=== PATIENT | female | born 1960 | race Two or more races ===

== ENCOUNTER 2016-11-04 11:11 | Inpatient (IN) | payer OTHER ==
[2016-10-24 11:38] VITALS: BMI 29.0
--- NOTE | 2016-11-03 19:04 | HP ---
DATE OF ADMISSION: Sara Keen is a 56-year-old lady seen with progressive right knee pain consistent with symptomatic osteoarthritis, failing conservative treatment measures. After having options regarding treatment discussed, she elected to proceed with right total knee arthroplasty. Consent regarding the procedure was obtained. Past medical history is hypothyroidism, osteoarthritis. PAST SURGICAL HISTORY: Cataract surgery, knee arthroscopy. Daily medications: 1. [place]. 2. Thyroxine. ALLERGIES: AMOXICILLIN. SOCIAL HISTORY: Patient denies current tobacco use. Physical evaluation of the right knee: Her range of motion is -3 to 115 degrees. There is a mild to moderate intra-articular effusion present. Tenderness medial joint line with a positive medial Rossy's. Crepitus along the medial and patellofemoral compartments with range of motion. Pain with patellofemoral compression. Ligaments stable. Hip rotation without pain. Distal neurovascular exam intact. Radiographs of the right knee revealed severe tricompartmental osteoarthritis. IMPRESSION: Right knee osteoarthritis. PLAN: Right total knee arthroplasty.
[~2016-11-04 11:11] MED LIST: ACETAMINOPHEN TAB 500 MG TAB PO ONE; CLINDAMYCIN 900 MG in DEXTROSE 5% IN WATER 50 ML IVPB ONE; HYDROmorphone 1 MG/ML 1 ML SYRINGE IVP PRN; LIDOCAINE 1% 20 ML VIAL (10MG/ML) FOR IV START INTRADERMA PRN; MELOXICAM 7.5 MG TAB PO ONE; MIDAZOLAM 2 MG/2 ML VIAL IV PRN; ONDANSETRON 4 MG/2 ML VIAL IVP ONE; TRANEXAMIC ACID 1,000 MG in SODIUM CHLORIDE 0.9% 100 ML IVPB ONE; fentaNYL (PF) 50 MCG/ML 20 ML VIAL IVP PRN
[2016-11-04] MEDS: LACTATED RINGERS 1,000 ML IV SCH ×3 (11:53→18:02)
[2016-11-04] MEDS ORDERED: MIDAZOLAM 2 MG/2 ML VIAL IVP ONE (12:38)
[2016-11-04] MEDS ORDERED: LIDOCAINE 1% INJ 10MG/ML (20 ML MDV) ONE (13:53)
[2016-11-04] MEDS ORDERED: PROPOFOL 10 MG/ML 20 ML VIAL IV ONE (13:53)
[2016-11-04] MEDS ORDERED: PHENYLEPHRINE-0.9% NACL SYG 1 MG/10 ML SYRINGE ONE (13:53)
[2016-11-04] MEDS ORDERED: SODIUM CHLORIDE 0.9% 100 ML BAG ONE (13:53)
[2016-11-04] MEDS ORDERED: TRANEXAMIC ACID 1,000 MG/10 ML VIAL ONE (13:53)
[2016-11-04] MEDS ORDERED: MIDAZOLAM 2 MG/2 ML VIAL ONE (13:53)
[2016-11-04] MEDS ORDERED: fentaNYL (PF) 50 MCG/ML 2 ML AMP ONE (13:53)
[2016-11-04] MEDS ORDERED: CLINDAMYCIN 1,800 MG in SODIUM CHLORIDE 0.9% IRRIGATIO 3,000 ML IRRIGATION ONE (13:53)
[2016-11-04] MEDS ORDERED: ePHEDrine 50 MG/ML 1 ML AMP ONE (13:53)
[2016-11-04] MEDS ORDERED: ROPIVACAINE 1,100 MG, SODIUM CHLORIDE 0.9% 330 ML MISCELLANE PRN ×2 (14:17)
--- NOTE | 2016-11-04 14:19 | P.ONQ ---
Anesthesiology Proc Note - PNB - Peripheral Nerve Block Performed Right Adductor Canal Infusion Time Out Performed: Yes Procedure Start Time: 12:30 Procedure Stop Time: 12:40 Indication: Acute Post-Operative Pain, Requested by physician Sedation Type: Awake Preparation: Sterile Dressing Position: Supine Needle Size: 100mm (4") Needle Gauge: 21 Technique: Ultrasound Injectate: 0.5% Ropivacaine (see comment for volume) (ropi .5% 20cc) Blood Aspirated: No Pain Paresthesia on Injection Noted: No Resistance on Injection: Normal Events: Uneventful and Well Tolerated
[2016-11-04] MEDS: ROPIVACAINE 246.25 MG, EPINEPHrine 0.5 MG, KETOROLAC 30 MG, cloNIDine HCL/PF 80 MCG, WA... MISCELLANE ONE ×10 (14:31→14:54)
[2016-11-04] MEDS ORDERED: LACTATED RINGERS 1,000 ML IV ONE (14:35)
[2016-11-04] MEDS ORDERED: ONDANSETRON 4 MG/2 ML VIAL IVP PRN (15:57)
[2016-11-04] MEDS ORDERED: NALOXONE 0.4 MG/ML 1 ML VIAL IV PRN (15:57)
[2016-11-04] MEDS ORDERED: HYDROcodone/APAP 7.5-325MG 1 EACH TAB PO PRN (15:57)
[2016-11-04] MEDS ORDERED: HYDROmorphone 1 MG/ML 1 ML SYRINGE IVP PRN ×3 (15:57)
--- NOTE | 2016-11-04 15:57 | P.OP ---
Date of Procedure: 11/04/16 Preoperative Diagnosis: Right knee osteoarthritis Postoperative Diagnosis: Right knee osteoarthritis Procedure(s) Performed: Right total knee arthroplasty Implants: 1. Liz persona size 8 narrow cemented cruciate retaining femoral component 2. Liz persona size F cemented tibial tray 3. Liz persona 10 mm medial congruent polyethylene tibial insert 4. Liz persona 38 mm cemented all polyethylene patella Anesthesia: regional (Adductor canal block), local, spinal Surgeon: Tony Mckinney Credentialing Assistant #1: Ck Valdez Estimated Blood Loss (ml): 150 Pathology: other (Bone) Condition: stable Disposition: PACU Indications for Procedure: 56-year-old patient seen with symptomatic right knee osteoarthritis. After having treatment options discussed, she elected to proceed with right total knee arthroplasty. Operative Findings: See description of procedure Description of Procedure: Patient was taken to the operative suite after having undergone an adductor canal block by department of anesthesia. Patient underwent a spinal anesthetic by the department of anesthesia. Patient was given preoperative IV intake antibiotics and TXA. A well-padded tourniquet was placed about the right lower extremity. The lower extremity was then prepped and draped in the normal sterile orthopedic fashion. A standard anterior incision was made sharply through skin. Dissection was taken down through the subcutaneous soft tissues down to the extensor mechanism. A medial arthrotomy was performed, patella was everted and knee was flexed. There was advanced osteoarthritis noted. A proximal tibial cutting guide was positioned. Proximal tibial cut was made. A distal intramedullary femoral cutting guide was positioned, distal femoral cut made. We placed the appropriate sizing guide and selected the appropriate size. A distal 4-in-1 femoral cutting block was positioned, distal femoral cuts were made. There was some bleeding from the bone noted and at this point we insufflated the tourniquet to 350. We now placed a trial femoral component into position, along with an appropriate size tibial tray and insert. We now took the knee through range of motion and had full extension good flexion and good overall soft tissue balance noted. The patella was everted and a flush cut made with patellar quad tendon. We templated the patella, appropriate drill holes were made. An appropriate trial patella was positioned, knee was taken through full range of motion with the patella tracking very nicely. The trial patella was removed. Drill holes were made through the femoral component. All trial components were removed after marking off the appropriate rotation of the tibia. Retractors were now positioned along the proximal tibia. An appropriate keel punch was made with the appropriate size tibial guide. At this point appropriate size implants were chosen and opened. The joint was irrigated copiously with pulse lavage mechanical irrigation. The deep soft tissues were infiltrated with local analgesic. We mixed antibiotic methylmethacrylate. Once the methyl methacrylate was ready, the tibial component was cemented into place removing any excess methylmethacrylate. The femoral component was cemented into place removing the removing any excess methylmethacrylate. We then inserted the appropriate size polyethylene tibial insert. We made sure that it was locked into position. We took the knee into full extension, and then back in a flexion making sure we had removed any excess methylmethacrylate. The patellar component was then cemented down and secured with clamp. Excess methylmethacrylate removed. We kept the knee in full extension, patellar clamp in position until methylmethacrylate had hardened. Once it had hardened the patellar clamp was removed. The knee was taken through full range of motion. The patella tracked nicely. There was good soft tissue balancing. The tourniquet was now released. Additional hemostasis was achieved via electrocautery. Second gram of TXA was given. The superficial soft tissues were infiltrated local analgesia. The wound was irrigated with pulse lavage mechanical irrigation. The extensor mechanism was repaired with Vicryl. We checked the repair with range of motion and it was stable. The subcutaneous soft tissues were repaired with Vicryl in layers. The skin was approximated with pernio/Dermabond. Sterile dressings were applied followed by loose web roll and Pablito bandage. The patient was transferred to a bed, and taken to recovery in stable and satisfactory condition. Giovanny TILLMAN assisted with the procedure.
--- NOTE | 2016-11-04 16:50 | XR ---
EXAMINATION TYPE: XR knee limited RT DATE OF EXAM: 11/04/2016 4:41 PM COMPARISON: NONE HISTORY: Post knee replacement TECHNIQUE: Right knee is examined in 2 projections FINDINGS: No acute fractures are evident. Postsurgical changes are present. Tibial and femoral compon ents have been placed. IMPRESSION: 1. No acute fracture post right knee replacement
[2016-11-04] MEDS: traMADol 50 MG TAB PO SCH ×2 (18:00→21:39)
[2016-11-04] MEDS: CLINDAMYCIN 900 MG in DEXTROSE 5% IN WATER 50 ML IVPB SCH ×2 (20:15)
[2016-11-04] MEDS: HYDROcodone/APAP 7.5-325MG 1 EACH TAB PO PRN (20:15)
[2016-11-04] MEDS: SENNOSIDES-DOCUSATE SODIUM 1 EACH TAB PO SCH (21:39)
[2016-11-04] MEDS: ENOXAPARIN 30 MG/0.3 ML SYRINGE SQ SCH (21:40)
[2016-11-05] MEDS: CLINDAMYCIN 900 MG in DEXTROSE 5% IN WATER 50 ML IVPB SCH ×2 (02:01)
[2016-11-05] MEDS: LACTATED RINGERS 1,000 ML IV SCH ×4 (02:02→20:27)
[2016-11-05] MEDS: hydrOXYzine PAMOATE 25 MG CAP PO PRN ×4 (03:05→20:26)
[2016-11-05] MEDS: HYDROcodone/APAP 7.5-325MG 1 EACH TAB PO PRN ×3 (03:05→14:10)
--- NOTE | 2016-11-05 08:07 | P.PN ---
Progress Note - Text The patient is status post right adductor canal catheter placement. The catheter was placed for postoperative pain control, status post total right arthroplasty. Ropivacaine 0.2% is infusing at 14 mLs per hour. The patient has no complaints of lower extremity numbness or weakness. Patient's VAS score is 3 -10. Assessment: Patient's adductor canal catheter is in place and working appropriately. Plan: continue infusion and adjust it as needed.
[2016-11-05] MEDS: ENOXAPARIN 30 MG/0.3 ML SYRINGE SQ SCH ×2 (08:08→20:31)
[2016-11-05] MEDS: MELOXICAM 7.5 MG TAB PO SCH (08:08)
[2016-11-05] MEDS: FAMOTIDINE 20 MG TAB PO SCH (08:08)
[2016-11-05 08:18] LABS: Basophils % (A) 0 %; CH 32.3; CHCM 32.6; Eosinophils # (A) 0.1 k/uL (0-0.7); Eosinophils % (A) 2 %; HCT 35.1 % (34.0-46.0); HDW 2.18; HGB 11.4 gm/dL (11.4-16.0); Luc # (Auto) 0.14; Luc % (Auto) 2; Lymphocytes % (A) 14 %; MCH 32.1 pg (25.0-35.0); MCHC 32.4 g/dL (31.0-37.0); MCV 99.3 fL (80.0-100.0); Mean Platelet Volume 6.2; Monocytes # (A) 0.5 k/uL (0-1.0); Monocytes % (A) 7 %; Neutrophils % (A) 74 %; RBC 3.54 m/uL (3.80-5.40); RDW 13.6 % (11.5-15.5); WBC 6.7 k/uL (3.8-10.6); WBC (Perox) 7.42
[2016-11-05] MEDS: traMADol 50 MG TAB PO SCH ×4 (10:31→21:30)
--- NOTE | 2016-11-05 10:44 | P.PN ---
Subjective Principal diagnosis: Status post right total knee arthroplasty Patient is seen today resting in her hospital bed, she appears comfortable. She 's been up with therapy. She has had some increasing pain. She denies any headaches, lightheadedness, chest pain, shortness of breath. Objective - Vital Signs Vital signs: Vital Signs Temp 99.1 F 11/05/16 07:33 Pulse 88 11/05/16 08:00 Resp 16 11/05/16 08:00 BP 113/57 11/05/16 07:33 Pulse Ox 96 11/05/16 07:33 Intake & Output 11/04/16 11/05/16 11/05/16 18:59 06:59 18:59 Intake Total 1801 2100 Output Total 954 903 3506 Balance 1001 1250 -1000 Weight 83.915 kg Intake: IV 1801 1100 Lactated Ringers 1,000 ml 1100 @ 100 mls/hr IV .Q10H BISHOP Rx#:[id number] Oral 1000 Output: Urine 543 227 1887 Uretheral (Mcclellan) 850 500 Estimated Blood Loss 150 Other: Voiding Method Indwelling Catheter Indwelling Catheter Indwelling Catheter # Voids 2 - Exam Right lower extremity: Incision is clean, dry and intact. Minimal soft tissue swelling present around the knee. Calf is soft, no tenderness with palpation. Plantar flexion, dorsiflexion, EHL, FHL are intact. Sensory exam to light touch is intact about the extremity, cap refills less than 2 seconds. - Labs CBC & Chem 7: 11/05/16 07:34 Labs: Abnormal Lab Results - Last 24 Hours (Table) 11/05/16 Range/Units 07:34 RBC 3.54 L (3.80-5.40) m/uL Assessment and Plan Plan: Assessment: 1. Postop day #1 status post right total knee arthroplasty Plan: 1. Pain control, continue supportive oral medication 2. Daily dressing changes/ice and elevate 3. Encourage incentive spirometer 4. Continue with physical therapy and CPM 5. GI and DVT prophylaxis, continue Lovenox 6. Medical recommendations 7. Discharge planning: Patient will likely be discharged home tomorrow Time with Patient: Less than 30
--- NOTE | 2016-11-05 13:08 | P.DS ---
Providers Date of admission: 11/04/16 11:11 Expected date of discharge: 11/06/16 Attending physician: Tony Mckinney Consults: 11/04/16 15:57 Consult Physician Routine Consulting Provider: Lisandro Nash Consult Reason/Comments: Medical management Do you want consulting provider notified?: Yes Primary care physician: Chelsea Nielsen Hospital Course: Date of admission: 11/04/2016 Date of discharge: 11/06/2016 Admission diagnosis: Status post right total knee arthroplasty Discharge diagnosis: Same Attending physician: Dr. Mckinney Surgical procedures: Right total knee arthroplasty Brief history: Patient is a 56-year-old female with a history of progressive primary right knee osteoarthritis. At this point patient has failed conservative treatment measures and has opted to proceed with a elective right total knee arthroplasty. Hospital course: Details of patient's surgery can be found in operative report. Patient tolerated the procedure well and was subsequently transported to orthopedic floor. Patient's orthopeidc and medical care was provided daily. Patient had daily laboratory tests performed for evaluation of overall blood counts. Patient had daily physical therapy to include strengthening range of motion as well as education with walker ambulation. Patient had daily CPM usage as part of their physical therapy program. Patient was treated with Lovenox for their postoperative DVT prophylaxis during their inpatient stay. Patient was noted to have a relatively uneventful postoperative course. Patient reported satisfactory pain control with oral pain medications by postoperative day 0. Patient showed satisfactory progress with physical therapy. Patient moved steadily through the program and had no difficulty meeting the goals by postoperative day 2. Given patient's otherwise satisfactory course and having met physical therapy goals, plan is to discharge patient home on postoperative day 2. Discharge condition/disposition: Patient will be discharged home in stable condition. Discharge medications: Instructions are given on resumption of patient's normal daily medications per primary care recommendation, in addition patient will be prescribed [place] 10 mg/325 mg, tramadol 50 mg, Colace 100 mg, Pepcid 20 mg, aspirin 325 mg. Discharge instructions: 1. Wound care and infection precautions, keep incision dry and covered while showering, no lotions, creams, moisturizers. No soaking, tubs, pools, hottubs. Do not scrub over the incision. 2. Weight-bear as tolerated with walker / cane until follow-up. 3. Ice and elevate when necessary. Do not exceed 20 minutes per hour with ice pack. 4. Utilize compression sleeve until seen at first follow up appointment. 5. Visiting nursing care. 6. Home physical therapy including home CPM. 7. Pain meds and anticoagulants per prescription. 8. Pain medication has potential to cause constipation. Increase oral fluid and fiber intake. Contact primary care provider if you have not had a bowel movement within 48 hours after discharge 9. No anti-inflammatory medication until discussed at first post operative visit, this including Motrin, Aleve, Mobic, Diclofenac. 10. Follow up in office at 2 weeks postop with Giovanny Valdez PA-C 11. Follow up with your primary care doctor 7-10 days after discharge. 12. Contact [facility] with any questions, . Procedures: Right total knee arthroplasty Patient Condition at Discharge: Good Plan - Discharge Summary New Discharge Prescriptions: Aspirin 325 mg PO BID #60 tab Docusate [Colace] 100 mg PO DAILY #30 capsule Famotidine [Pepcid] 20 mg PO DAILY #30 tablet Hydrocodone/Acetaminophen [[place] 10-325] 1 each PO Q6H PRN #60 tab PRN Reason: Pain traMADol HCl [Ultram] 50 mg PO Q6H PRN #40 tab PRN Reason: Pain Discharge Medication List Doxycycline Hyclate [Doxycycline Hyclate] 20 mg PO DAILY 10/24/16 [History] Levothyroxine Sodium [Synthroid] 175 mcg PO DAILY 10/24/16 [History] Aspirin 325 mg PO BID #60 tab 11/06/16 [Rx] Docusate [Colace] 100 mg PO DAILY #30 capsule 11/06/16 [Rx] Famotidine [Pepcid] 20 mg PO DAILY #30 tablet 11/06/16 [Rx] Hydrocodone/Acetaminophen [[place] 10-325] 1 each PO Q6H PRN #60 tab 11/06/16 [Rx] traMADol HCl [Ultram] 50 mg PO Q6H PRN #40 tab 11/06/16 [Rx] Follow up Appointment(s)/Referral(s): [facility], [NON-STAFF] - 1 Week Ck Valdez PAC [PHYSICIAN DRYING TUMBLER OPERATOR] - 11/20/16 3:10 pm Activity/Diet/Wound Care/Special Instructions: Orthopedic Discharge Instructions: 1. Wound care and infection precautions, keep incision dry and covered while showering, no lotions, creams, moisturizers. No soaking, pools, hot tubs. Do not scrub over incision. 2. Weight-bear as tolerated with walker / cane until follow-up. 3. Ice and elevate when necessary. Do not exceed 20 minutes per hour with ice pack. 4. Utilize compression sleeve until seen at first follow up appointment. 5. Visiting nursing care. 6. Home physical therapy including home CPM. 7. Pain meds and anticoagulants per prescription. 8. Pain medication has potential to cause constipation. Increase oral fluid and fiber intake. Contact primary care provider if you have not had a bowel movement within 48 hours after discharge. 9. No anti-inflammatory medication until discussed at first post operative visit, this including Motrin, Aleve, Mobic, Diclofenac. 10. Follow up in office at 2 weeks postop with Giovanny Valdez PA-C 11. Follow up with your primary care doctor 7-10 days after discharge. 12. Contact [facility] with any questions, . Discharge Disposition: HOME WITH HOME HEALTH SERVICES
[2016-11-05] MEDS ORDERED: HYDROcodone/APAP 10-325MG 1 EACH TAB PO PRN ×2 (17:07→19:29)
--- NOTE | 2016-11-05 17:58 | P.PN ---
Progress Note - Text I came to see patient for consult requested last evening, however patient is doing well, discharge summary already in place patient would be discharged home At this time with cancel consultation, I have reviewed the chart and there is no active medical problems
[2016-11-05] MEDS: MULTIVITAMINS, THERA 1 EACH TAB PO SCH (17:59)
[2016-11-05] MEDS: HYDROcodone/APAP 10-325MG 1 EACH TAB PO PRN (20:25)
[2016-11-05] MEDS: SENNOSIDES-DOCUSATE SODIUM 1 EACH TAB PO SCH (20:26)
[2016-11-05] MEDS ORDERED: ZOLPIDEM 5 MG TAB PO SCH (21:00)
[2016-11-06 01:47] VITALS: RESP 16
[2016-11-06] MEDS: HYDROcodone/APAP 10-325MG 1 EACH TAB PO PRN ×2 (04:11→10:19)
[2016-11-06 07:45] VITALS: BP 125/85; TEMP 97.9
[2016-11-06] MEDS: LACTATED RINGERS 1,000 ML IV SCH (07:47)
--- NOTE | 2016-11-06 07:47 | P.PN ---
Progress Note - Text 0712 anesthesia POD 2. Patient is status post right total knee replacement under spinal anesthesia with a right adductor canal catheter placed for postoperative pain relief. Ropivacaine 0.2% was running at 14 mL per hour but the pump reservoir is now empty. Catheter site is clean dry and intact and the plan is to remove the catheter and dressed with a Band-Aid.
[2016-11-06] MEDS: ENOXAPARIN 30 MG/0.3 ML SYRINGE SQ SCH (08:15)
[2016-11-06] MEDS: traMADol 50 MG TAB PO SCH ×2 (08:15→13:05)
[2016-11-06] MEDS: FAMOTIDINE 20 MG TAB PO SCH (08:16)
[2016-11-06] MEDS: MELOXICAM 7.5 MG TAB PO SCH (08:16)
[2016-11-06 09:14] VITALS: PULSE 78
[2016-11-06] MEDS: hydrOXYzine PAMOATE 25 MG CAP PO PRN (10:20)
[2016-11-06] MEDS: MULTIVITAMINS, THERA 1 EACH TAB PO SCH (13:05)
== END 2016-11-06 13:58 | disposition home health service (06) | DRG 470 ==
LOC: 2ORMAIN 11:11 → 3SUR 15:50
PROVIDERS: ADMIT Orthopaedic Surgery; ATTEND Orthopaedic Surgery
PROC: 0SRC0J9 Replacement of Right Knee Joint with Synthetic Substitute, Cemented, Open Approach (ICD-10-PCS; principal; 2016-11-04 12:55)
DX: M17.11 Unilateral primary osteoarthritis, right knee (principal); E03.9 Hypothyroidism, unspecified; Z88.1 Allergy status to other antibiotic agents; Z79.899 Other long term (current) drug therapy
CPT/HCPCS: 85025; 88300

== ENCOUNTER → 2023-04-25 | Outpatient (CLI) | payer OTHER ==
[2023-04-25 21:04] LABS: BUN/Creat Ratio 26.67 Ratio (12.00-20.00); Calcium 9.2 mg/dL (8.7-10.3); Carbon Dioxide 23.9 mmol/L (21.6-31.8); Chloride 107 mmol/L (96-109); Glucose 91 mg/dL (70-110); Potassium 4.4 mmol/L (3.5-5.5); Sodium 144 mmol/L (135-145)
[2023-04-25 21:14] LABS: Basophils # (A) 0.05 X 10*3/uL (0.00-0.10); Basophils % (A) 0.9 %; Eosinophils # (A) 0.17 X 10*3/uL (0.04-0.35); Eosinophils % (A) 3.1 %; HGB 12.2 d/dL (12.0-15.0); Lymphocytes # (A) 1.61 X 10*3/uL (0.90-5.00); Lymphocytes % (A) 29.1 %; MCH 32.4 pg (27.0-32.0); MCV 98.4 FL (80.0-97.0); Mean Platelet Volume 8.8 FL (9.5-12.2); Monocytes % (A) 12.7 %; NRBC Per 100 WBC 0 X 10*3/uL (0.00-0.01); Neutrophils # (A) 2.99 X 10*3/uL (1.80-7.70); Platelet Count 314 X 10*3/uL (140-440); RBC 3.76 X 10*6/uL (4.10-5.20); RDW 12.7 % (11.5-14.5); WBC 5.53 X 10*3/uL (4.50-10.00)
[2023-04-25 21:15] LABS: INR <0.93 sec (0.93-1.11); Prothrombin Time 10.3 sec (9.9-11.9)
== END | disposition home or self-care (01) ==
LOC: LABWHC1 14:52
PROVIDERS: ATTEND Orthopaedic Surgery
DX: Z01.812 Encounter for preprocedural laboratory examination (principal); Z22.322 Carrier or suspected carrier of Methicillin resistant Staphylococcus aureus; M16.11 Unilateral primary osteoarthritis, right hip
CPT/HCPCS: 36415; 80048; 85025; 85610; 86850; 86900; 86901; 87070; 93005

== ENCOUNTER → 2023-12-31 | Outpatient (CLI) | payer OTHER ==
--- NOTE | 2023-12-31 09:08 | CT ---
EXAMINATION TYPE: CT chest w con DATE OF EXAM: 12/31/2023 COMPARISON: None HISTORY: Abnormal x-ray CT DLP: 453.50 mGycm Automated exposure control for dose reduction was used. TECHNIQUE: CT scan of the chest is performed with IV Contrast, patient injected with 70 mL of Isovue 300. MIP I mages are created on CT scanner and reviewed. 3D reconstructed images are created on an independent w orkstation and reviewed. FINDINGS: LUNGS: The lungs are grossly clear, there is no concerning parenchymal mass or nodule identified. T here is no pleural effusion or pneumothorax seen. The tracheobronchial tree is patent. There is subs egmental changes posteriorly likely in the basis of dependent atelectasis. 1 mm subpleural nodule rig ht upper lobe image 25 has a benign appearance MEDIASTINUM: There are no greater than 1 cm hilar or mediastinal lymph nodes. Trace of pericardial ef fusion is seen. Pulmonary artery is slightly dilated measuring 3.3 cm correlate for pulmonary arteri al hypertension. OTHER: No additional significant abnormality is seen. Hypertrophic and degenerative changes of the s pine. Fluid attenuating Hounsfield unit measurement lesions in the liver compatible simple cysts. Additiona l too small to characterize lesions are nonspecific but statistically most likely related to addition al benign cysts. IMPRESSION: 1. No acute intrathoracic process. 2. Mild prominence of the pulmonary main trunk can be associated with pulmonary arterial hypertension . Follow-up recommendations for incidental pulmonary nodules are per [employer] or [employer].
== END | disposition home or self-care (01) ==
LOC: RADCTMAIN 08:11
PROVIDERS: ATTEND Family Medicine
DX: I77.810 Thoracic aortic ectasia (principal)
CPT/HCPCS: 71260; Q9967

== ENCOUNTER → 2024-02-23 | Outpatient (CLI) | payer OTHER | END | disposition home or self-care (01) | LOC: RADECHMAIN 14:00 | PROVIDERS: ATTEND Family Medicine | DX: Z13.9 Encounter for screening, unspecified (principal); Q25.5 Atresia of pulmonary artery | CPT/HCPCS: 93306 ==